=== PATIENT | male | born 1970 | race Caucasian/White ===

== ENCOUNTER 2023-12-08 03:20 | Emergency (ER) | payer SELFPAY ==
[~2023-12-08] VITALS: Ht 175.3 cm; Wt 82.0 kg
[2023-12-08 03:27] VITALS: O2SAT 99
[2023-12-08] MEDS: SODIUM CHLORIDE 0.9% 1,000 ML IV ONE (03:45)
[2023-12-08 03:49] LABS: BASOPHILS % 0.5 % (0.0-2.0); EOSINOPHILS % 1.3 % (0.0-5.0); LYMPHOCYTES % 16.7 % (20.0-50.0); MEAN CORPUSCULAR HGB CONC 34.1 g/dL (31.0-37.0); MEAN CORPUSCULAR VOLUME 87.7 fL (80.0-94.0); MEAN PLATELET VOLUME 7.1 fl (7.4-10.4); MONOCYTES % 5.6 % (2.0-8.0); NEUTROPHILS % 75.9 % (40.0-76.0); PLATELET 227 x1000/uL (130-400); RED BLOOD CELL COUNT 5.02 mill/uL (4.7-6.1); RED CELL DISTRIBUTION WIDTH 13.2 % (11.6-14.6); WHITE BLOOD COUNT 9.4 x1000/uL (4.5-11.0)
[2023-12-08 04:00] LABS: PROTHROMBIN TIME 11.1 sec (9.6-11.0)
[2023-12-08 04:29] LABS: CHLORIDE 102 mEq/L (98-107); POTASSIUM 3.4 mEq/L (3.5-5.1); SODIUM 135 mEq/L (136-145)
[2023-12-08 04:30] LABS: CALCIUM 9.4 mg/dL (8.7-10.4); CARBON DIOXIDE 27 mEq/L (21-32)
[2023-12-08 04:35] LABS: CREATININE 1.5 mg/dL (0.6-1.3); GLUCOSE 150 mg/dL (70-105); UREA NITROGEN BLOOD 16 mg/dL (9-23)
[2023-12-08 04:37] LABS: ALANINE AMINOTRANSFERASE 37 IU/L (10-49); ALBUMIN 4.6 g/dL (3.2-4.8); ASPARTATE AMINOTRANSFERASE 24 IU/L (<34); BILIRUBIN DIRECT 0.1 mg/dL (<=3.0)
[2023-12-08 04:38] LABS: BILIRUBIN TOTAL 0.5 mg/dL (0.1-1.0); PROTEIN TOTAL 7.4 g/dL (6.0-8.3)
[2023-12-08 04:42] LABS: ETHANOL BLOOD < 10 mg/dL (<10)
[2023-12-08] MEDS: ONDANSETRON HCL 4MG/2ML INJ IV STA (05:19)
[2023-12-08] MEDS: KETOROLAC 15MG/ML VIAL IV ONE (05:19)
[2023-12-08] MEDS: ONDANSETRON HCL 4MG/2ML INJ IV NR (05:20)
[2023-12-08] MEDS ORDERED: ACET-2708 MT (05:50)
[2023-12-08] MEDS ORDERED: ONDA4TAB50 MT (05:50)
[2023-12-08] MEDS ORDERED: PROT40 MT (05:50)
[2023-12-08] MEDS ORDERED: MORPHINE SULFATE 4 MG/ML INJ (FOR IV/IM USE) IV ONE (06:00)
[2023-12-08] MEDS: HYDRALAZINE 20MG/ML VIAL IV ONE (06:58)
[2023-12-08 08:00] VITALS: TEMP 36.66960; O2SAT 99
[2023-12-08 09:09] VITALS: BP 152/96; PULSE 90; RESP 15
[2023-12-08] MEDS: MORPHINE SULFATE 4 MG/ML INJ (FOR IV/IM USE) IV NR (09:09)
== END 2023-12-08 10:42 | disposition home or self-care (01) ==
LOC: ER 03:49
DX: R10.11 Right upper quadrant pain (principal)
CPT/HCPCS: 80076; 80048; 80320; 83690; 85025; 85610; 36415; 74176; 76705; 93005; 96361; 96374; 96375; 99285; J0360; J1885; J2405; J2270; J7030; G0480